=== PATIENT | female | born 1985 | race Caucasian/White ===

== ENCOUNTER → 2016-07-02 | Outpatient (CLI) | payer MEDICAID ==
[2016-07-02 17:38] LABS: BASO % 0.3 % (0.0-1.0); EOS # 0.1 K/mm3 (0.0-0.50); EOS % 2.8 % (0.0-3.0); LARGE UNSTAINED CELL # 0.1 K/mm3 (0.0-0.4); LYMPH % 20.7 % (24.0-44.0); MEAN CORPUSCULAR HEMOGLOBIN 29.1 pg (27.0-33.0); MEAN CORPUSCULAR VOLUME 88.3 fl (80.0-96.0); MONO # 0.5 K/mm3 (0.0-0.8); MONO % 9.5 % (0.0-5.0); NEUTROPHILS # 3.2 K/mm3 (1.8-7.7); NEUTROPHILS % 64.6 % (36.0-66.0); PLATELET COUNT, AUTOMATED 326 k/mm3 (150-450); RED CELL DISTRIBUTION WIDTH 13.2 % (11.5-14.5)
[2016-07-03 14:05] LABS: HIV SCRN NEGATIVE (NEGATIVE); HIV SCRN1 NEGATIVE (NEGATIVE)
[2016-07-03 14:06] LABS: CONTROL LINE INT CTR LINE PRESENT
[2016-07-04 09:50] LABS: HBsAg Prenatal NEGATIVE (NEGATIVE)
== END ==
LOC: M SMT 13:23
PROVIDERS: ATTEND Obstetrics & Gynecology
DX: Z34.81 Encounter for supervision of other normal pregnancy, first trimester (principal)

== ENCOUNTER → 2016-07-13 | Outpatient (CLI) | payer MEDICAID ==
--- NOTE | 2016-07-13 14:33 | REP ---
OBSTETRIC SONOGRAPHY: HISTORY: Supervision of for anatomy. FINDINGS: Scanning through the gravid uterus demonstrates a viable single intrauterine gestation in a variable lie. motion is observed and heart rate is recorded at 133 beats per minute. Amniotic fluid is subjectively normal. Closed cervical length measured transabdominally is 4.8 cm. No extrauterine abnormality is observed. No anomaly is seen. The following anatomic structures are identified and felt to be sonographically unremarkable: cranium, choroid plexus, cavum, cerebellum and posterior fossa, face and profile, lungs, four-chamber heart with left and right ventricular outflow tract views, diaphragm, left-sided stomach, abdominal wall cord insertion, three-vessel umbilical cord, kidneys and bladder, spine, upper and lower extremities. Biometry Chart: BPD 5.1 cm = 21 weeks 3 days HC 19.0 cm = 21 weeks 2 days AC 17.6 cm = 22 weeks 4 days FL 3.9 cm = 22 weeks 2 days HL 3.8 cm = 23 weeks 3 days CD 2.2 cm = 20 weeks 4 days HC/AC ratio normal 1.08. Cephalic index normal 0.74. Estimated weight 490 grams, 1 pound 1 ounce, 69th percentile for 21 weeks 4 days. IMPRESSION: Viable single intrauterine gestation at 21 weeks 4 days by today's composite sonographic criteria. [place] by today's sonography is November 19, 2016. Signed by Deshaun Ruff MD 07/13/2016 03:28 P
== END ==
LOC: M SMT 12:26 → EDUNIT# 13:00
PROVIDERS: ATTEND Obstetrics & Gynecology
DX: Z34.02 Encounter for supervision of normal first pregnancy, second trimester (principal); Z3A.21 21 weeks gestation of pregnancy

== ENCOUNTER → 2016-08-03 | Outpatient (REF) | payer MEDICAID | LOC: M LAB REF 11:10 | PROVIDERS: ATTEND Obstetrics & Gynecology | DX: Z34.82 Encounter for supervision of other normal pregnancy, second trimester (principal) ==

== ENCOUNTER → 2016-08-22 | Outpatient (CLI) | payer MEDICAID, OTHER ==
[2016-08-22 15:57] LABS: MEAN CORPUSCULAR HEMOGLOBIN 29.4 pg (27.0-33.0); MEAN CORPUSCULAR HGB CONC 33.5 g/dl (32.0-36.5); MEAN CORPUSCULAR VOLUME 87.6 fl (80.0-96.0); RED CELL DISTRIBUTION WIDTH 13.1 % (11.5-14.5); WHITE BLOOD COUNT 6.3 K/mm3 (4.0-10.0)
== END ==
LOC: M LAB 12:16
PROVIDERS: ATTEND Obstetrics & Gynecology
DX: Z34.81 Encounter for supervision of other normal pregnancy, first trimester (principal)

== ENCOUNTER → 2016-08-30 | Outpatient (CLI) | payer OTHER | LOC: M LAB 11:13 | PROVIDERS: ATTEND Obstetrics & Gynecology | DX: Z34.82 Encounter for supervision of other normal pregnancy, second trimester (principal) ==

== ENCOUNTER 2016-10-06 11:32 | Emergency (ER) | payer OTHER ==
[~2016-10-06] VITALS: Ht 170.2 cm; Wt 87.1 kg
[2016-10-06] MEDS ORDERED: PRENTAB6 (11:41)
[2016-10-06] MEDS: LR 1,000 ML IV SCH (12:00)
[2016-10-06 12:18] LABS: BASO % 0.4 % (0.0-1.0); EOS # 0.5 K/mm3 (0.0-0.50); EOS % 7.4 % (0.0-3.0); LARGE UNSTAINED CELL # 0.1 K/mm3 (0.0-0.4); LYMPH # 1.3 K/mm3 (1.5-4.5); LYMPH % 17.5 % (24.0-44.0); MEAN CORPUSCULAR HEMOGLOBIN 28.5 pg (27.0-33.0); MEAN CORPUSCULAR HGB CONC 33.9 g/dl (32.0-36.5); MEAN CORPUSCULAR VOLUME 84.1 fl (80.0-96.0); MONO # 0.6 K/mm3 (0.0-0.8); MONO % 9.7 % (0.0-5.0); NEUTROPHILS # 4.1 K/mm3 (1.8-7.7); PLATELET COUNT, AUTOMATED 264 k/mm3 (150-450); RED CELL DISTRIBUTION WIDTH 12.5 % (11.5-14.5); WHITE BLOOD COUNT 6.5 K/mm3 (4.0-10.0)
[2016-10-06 12:34] LABS: CONTROL LINE HCG INT CTR LINE PRESENT
[2016-10-06 12:40] LABS: ALBUMIN 3.1 GM/DL (3.2-5.2); ALBUMIN/GLOBULIN RATIO 0.66 (1.00-1.93); ALKALINE PHOSPHATASE 139 U/L (45-117); ALT/SGPT 15 U/L (12-78); ANION GAP 10 MEQ/L (8-16); AST/SGOT 17 U/L (15-37); BILIRUBIN,TOTAL 0.7 MG/DL (0.2-1.0); BLOOD UREA NITROGEN 7 MG/DL (7-18); CALCIUM LEVEL 8.8 MG/DL (8.5-10.1); CARBON DIOXIDE LEVEL 23 MEQ/L (21-32); CHLORIDE LEVEL 101 MEQ/L (98-107); CREATININE FOR GFR 0.61 MG/DL (0.55-1.02); GLOMERULAR FILTRATION RATE > 60.0 (>60); GLUCOSE, FASTING 102 MG/DL (70-105); POTASSIUM SERUM 3.5 MEQ/L (3.5-5.1); SODIUM LEVEL 134 MEQ/L (136-145); TOTAL PROTEIN 7.8 GM/DL (6.4-8.2)
[2016-10-06] MEDS ORDERED: METOCLOPRAMIDE INJ 10MG/2ML VIAL (J2765) IV ONE (16:00)
[2016-10-06] MEDS ORDERED: REGL5TAB2 PO (16:01)
[2016-10-06] MEDS ORDERED: LR 1,000 ML IV ONE (16:30)
[2016-10-06 17:37] VITALS: BP 130/82
== END 2016-10-06 17:36 | disposition home or self-care (01) ==
LOC: M ED 13:03
DX: O26.893 Other specified pregnancy related conditions, third trimester (principal); A08.4 Viral intestinal infection, unspecified; Z3A.33 33 weeks gestation of pregnancy

== ENCOUNTER → 2016-10-24 | Outpatient (REF) | payer OTHER ==
[~2016-10-24] MED LIST: PRENTAB6; REGL5TAB2 PO
== END ==
LOC: M LAB REF 13:15
PROVIDERS: ATTEND Advanced Practice Midwife
DX: Z34.83 Encounter for supervision of other normal pregnancy, third trimester (principal)

== ENCOUNTER 2016-11-15 00:20 | Inpatient (IN) | payer OTHER ==
[~2016-11-15] VITALS: Ht 170.2 cm; Wt 83.0 kg
[2016-11-15] VITALS (8 sets, daily range): BP systolic 97–142; BP diastolic 56–96
[2016-11-15] MEDS ORDERED: PROMETHAZINE INJ 25 MG/ML VIAL (J2550) IV ONE (02:15)
[2016-11-15] MEDS ORDERED: BUTORPHANOL 2 MG/ML INJ (J0595) IV ONE (02:15)
[2016-11-15] MEDS ORDERED: LACTATED RINGER'S 1000 ML IV STA (05:22)
[2016-11-15] MEDS ORDERED: LR 1,000 ML IV SCH (05:22)
[2016-11-15 05:45] LABS: MEAN CORPUSCULAR HEMOGLOBIN 27.9 pg (27.0-33.0); MEAN CORPUSCULAR VOLUME 84.6 fl (80.0-96.0); RED CELL DISTRIBUTION WIDTH 13.1 % (11.5-14.5); WHITE BLOOD COUNT 9.3 K/mm3 (4.0-10.0)
[2016-11-15 06:09] LABS: ALT/SGPT 11 U/L (12-78); AST/SGOT 11 U/L (15-37); BILIRUBIN,TOTAL 0.6 MG/DL (0.2-1.0); CREATININE FOR GFR 0.56 MG/DL (0.55-1.02); GLOMERULAR FILTRATION RATE > 60.0 (>60); URIC ACID 4.9 MG/DL (2.6-6.0)
[2016-11-15] MEDS ORDERED: OXYTOCIN 30 UNITS IN 0.9% NaCl 500ML IV BAG (J2590) As Ordered ONE (06:16)
[2016-11-15] MEDS ORDERED: FENTANYL 2MCG/ML ROPIVACAINE 0.2% IN 0.9% NACL 200ML IVBAG As Ordered ONE (07:53)
[2016-11-15] MEDS ORDERED: OXYTOCIN DRIP 30 UNITS in APPROPRIATE DILUENT 1 EA IV SCH (10:10)
[2016-11-15] MEDS ORDERED: DOCUSATE SODIUM 100 MG CAP PO PRN (10:15)
[2016-11-15] MEDS ORDERED: MEASLES,MUMPS,RUBELLA VACCINE INJ (MMR-II) (90707) SC SCH (10:15)
[2016-11-15] MEDS ORDERED: OXYTOCIN INJ 10 UNITS/ML VIAL (J2590) IM ONE (10:15)
[2016-11-15] MEDS ORDERED: ONDANSETRON 4 MG ORAL DISINTEGRATING TAB (S0181) PO PRN (10:15)
[2016-11-15] MEDS ORDERED: ANUSOL HC CREAM 30GM TOP PRN (10:15)
[2016-11-15] MEDS ORDERED: LIDOCAINE 1% MDV INJ 50 ML VIAL INFIL ONE (10:15)
[2016-11-15] MEDS ORDERED: IBUPROFEN 800 MG TAB PO PRN (10:15)
[2016-11-15] MEDS ORDERED: ACETAMINOPHEN 500 MG TAB PO PRN (10:15)
[2016-11-15] MEDS ORDERED: DIBUCAINE 1% OINTMENT 30GM TOP PRN (10:15)
[2016-11-15] MEDS ORDERED: RHOGAM 300 MCG (1500 IU) INJ (J2790) IM SCH (10:15)
--- NOTE | 2016-11-15 10:27 | DN ---
DATE: 11/15/2016 Stefani is a 31-year-old 1, para 1-0-0-1 now who was admitted to labor and delivery in active labor. She did utilize IV pain medication to cope with her labor. She had spontaneous rupture of membranes for a thick meconium stained fluid. She progressed to full dilation at 0820 hours. She pushed to a normal spontaneous vaginal delivery of a live female over a midline episiotomy in OA position with restitution to LOT position at 0939 hours. The shoulders delivered with ease and the corpus immediately followed. Cord was clamped times two and cut by myself. The was taken to the warmer for evaluation and resuscitation by Dr. Miranda, barrel stave inspector, due to the meconium stained fluid. Cord gases and cord blood were obtained. A spontaneous expulsion of an intact placenta with three vessel cord by Schultze mechanism was at 0943 hours. Uterine hemostasis was achieved with uterine fundal massage and pitocin 10 units IM. Estimated blood loss 350 mL. Perineum and vagina were inspected. Episiotomy t was infiltrated with 1% lidocaine and repaired with #3-0 Rapide in the usual fashion. female weighed 8 pounds 1 ounce, 3674 grams, scores of 8 and 9. Family have named their daughter Dot and the mom plans to bottle feed. At the close of delivery lap counts, instruments counts and needle counts were correct and verified. [facility]
[2016-11-15 10:40] LABS: CORD GAS ABE A -13.6; CORD GAS HCO3 A 18.1 MEQ/L; CORD GAS O2 SAT A 18.1 %; CORD GAS PCO2 A 67.8 mmHg; CORD GAS PH A 7.044 UNITS; CORD GAS PO2 A 15.9 mmHg; CORD GAS SBC A 12.7 MEQ/L; CORD GAS TCO2 A 20.2 MEQ/L
[2016-11-15 10:42] LABS: CORD GAS ABE V -15.4; CORD GAS HCO3 V 14.8 MEQ/L; CORD GAS O2 SAT V 38.4 %; CORD GAS PCO2 V 51.1 mmHg; CORD GAS PH V 7.079 UNITS; CORD GAS PO2 V 24.3 mmHg; CORD GAS TCO2 V 16.3 MEQ/L
[2016-11-16 05:39] VITALS: BP 128/63
[2016-11-16] MEDS: PRENATAL VITAMINS CHEWABLE TABLET PO SCH (09:17)
[2016-11-16 18:20] VITALS: BP 130/78
[2016-11-17 05:32] VITALS: BP 121/67
[2016-11-17] MEDS: PRENATAL VITAMINS CHEWABLE TABLET PO SCH (08:30)
[2016-11-17] MEDS ORDERED: MOTR200T44 PO (11:14)
[2016-11-17] MEDS ORDERED: ACET50TA PO (11:14)
== END 2016-11-17 13:30 | disposition home or self-care (01) | DRG 560 ==
LOC: M LDO 00:20 → M LDI 05:24 → M OBS 11:50
PROVIDERS: ADMIT Obstetrics & Gynecology; ATTEND Obstetrics & Gynecology
PROC: 0W8NXZZ Division of Female Perineum, External Approach (ICD-10-PCS; principal; 2016-11-15)
DX: O77.0 Labor and delivery complicated by meconium in amniotic fluid (principal); Z37.0 Single live birth; Z3A.39 39 weeks gestation of pregnancy

== ENCOUNTER → 2017-04-02 | Outpatient (REF) | payer OTHER, MEDICAID ==
[~2017-04-02] MED LIST changes: +ACET50TA PO; +MOTR200T44 PO
== END ==
LOC: M SFHCCAPE 15:41
PROVIDERS: ATTEND Physician Assistant
DX: Z20.5 Contact with and (suspected) exposure to viral hepatitis (principal)

== ENCOUNTER → 2018-07-01 | Outpatient (REF) | payer OTHER, SELFPAY ==
[~2018-07-01] MED LIST changes: -ACET50TA PO; +MAPA500T2 PO
[2018-07-04 14:22] LABS: HPV HYBRID CAPTURE II Negative (Negative)
== END ==
LOC: M LAB REF 17:54
PROVIDERS: ATTEND Advanced Practice Midwife
DX: Z12.4 Encounter for screening for malignant neoplasm of cervix (principal); Z11.51 Encounter for screening for human papillomavirus (HPV); N87.0 Mild cervical dysplasia; N76.0 Acute vaginitis

== ENCOUNTER → 2021-01-31 | Outpatient (REF) | payer OTHER, MEDICAID | LOC: M SFHCCAPE 15:26 | PROVIDERS: ATTEND Physician Assistant | DX: J40 Bronchitis, not specified as acute or chronic (principal) ==